=== PATIENT | male | born 1960 | race Two or more races ===

== ENCOUNTER 2024-06-30 15:50 | Inpatient (IN) | payer BC, MEDICAID ==
[~2024-06-30] VITALS: Ht 177.8 cm; Wt 73.0 kg
[2024-06-30] MEDS: IV NS 0.9% 1,000 ML BAG IV ONE (16:30)
[2024-06-30] MEDS ORDERED: INSU100I40 SQ (16:38)
[2024-06-30] MEDS ORDERED: METF-881 PO (16:38)
[2024-06-30] MEDS ORDERED: LISI20TA30 PO (16:38)
[2024-06-30] MEDS ORDERED: MORPHINE SULFATE INJ 4 MG/ML DISP.SYRIN ONE (16:47)
[2024-06-30] MEDS ORDERED: ONDANSETRON HCL/PF 4 MG/2 ML VIAL ONE (16:47)
[2024-06-30] MEDS ORDERED: PIPERACI/TAZO 3.375GM/D5W 50ML PB IV ONE (16:47)
[2024-06-30] MEDS: ONDANSETRON HCL/PF - ER 4 MG/2 ML VIAL IV ONE (16:50)
[2024-06-30 16:53] LABS: BASOPHILS # (AUTO) 0.1 K/uL (0.0-0.2); BASOPHILS % (AUTO) 1.1 % (0.0-2.0); EOSINOPHILS # (AUTO) 0.3 K/uL (0.0-0.7); EOSINOPHILS % (AUTO) 3.7 % (0.0-6.0); HEMATOCRIT 39 % (39-51); LYMPHOCYTES # (AUTO) 0.8 K/uL (0.8-4.8); LYMPHOCYTES % (AUTO) 9.3 % (20.0-44.0); MEAN CORPUSCULAR HEMOGLOBIN 28 PG (26.0-33.0); MEAN CORPUSCULAR HGB CONC 34 g/dl (31.0-36.0); MEAN CORPUSCULAR VOLUME 81 fL (80-96); MONOCYTES # (AUTO) 0.7 K/uL (0.1-1.30); MONOCYTES % (AUTO) 8.3 % (2.0-12.0); NEUTROPHILS # (AUTO) 6.8 K/uL (1.8-8.9); NEUTROPHILS % (AUTO) 77.6 % (43.0-81.0); PLATELET COUNT (AUTO) 258 K/uL (150-450); RED BLOOD CELL COUNT(AUTO) 4.73 MIL/uL (4.5-6.0); RED CELL DISTRIBUTION WIDTH 14.5 % (11.5-15.0); WHITE BLOOD COUNT (AUTO) 8.8 K/uL (4.3-11.0)
[2024-06-30] MEDS: MORPHINE SULFATE INJ 2 MG/ML DISP.SYRIN IV ONE (16:55)
[2024-06-30] MEDS: PIPERACILLIN /TAZOBACTAM 3.375 G in IV D5W 50 ML IV ONE (17:05)
[2024-06-30 17:30] LABS: LACTIC ACID 1.1 mmol/L (0.4-2.0)
[2024-06-30 17:34] LABS: ALANINE AMINOTRANSFERASE 17 U/L (12-78); ALBUMIN 2.6 g/dL (3.4-5.0); ALKALINE PHOSPHATASE 157 U/L (46-116); ASPARTATE AMINOTRANSFERASE 20 U/L (15-37); BILIRUBIN,DIRECT 0.1 mg/dL (0.0-0.2); BILIRUBIN,TOTAL 0.3 mg/dL (0.2-1.0); CALCIUM, SERUM 8.7 mg/dL (8.5-10.1); CARBON DIOXIDE 32 mmol/L (21-32); CHLORIDE 101 mmol/L (98-107); CREATININE 1.1 mg/dL (0.6-1.3); GLUCOSE 222 mg/dL (74-106); NT-PRO BNP 759 pg/mL (0-125); SODIUM SERUM 137 mmol/L (136-145); UREA NITROGEN, BLOOD 22 mg/dL (7-18)
[2024-06-30] MEDS ORDERED: VANCOMYCIN 1 GM /D5W 250 ML PB IV ONE (17:38)
[2024-06-30] MEDS: VANCOMYCIN 1 GM in IV D5W 250 ML IV ONE (17:40)
[2024-06-30 18:00] VITALS: O2SAT 98
[2024-06-30 18:16] LABS: INR 0.99 (0.91-1.10); PARTIAL THROMBOPLASTIN TIME 30.2 SEC (24.3-34.3); PROTHROMBIN TIME 10.5 SECS (9.2-11.1)
[2024-06-30 18:38] LABS: APPEARANCE,URINE CLEAR (CLEAR); BILIRUBIN,URINE NEGATIVE (NEGATIVE); BLOOD, URINE 3+ Ery/uL (NEGATIVE); COLOR,URINE YELLOW (YELLOW); KETONES,URINE TRACE mg/dL (NEGATIVE); LEUKOCYTE ESTERASE ,URINE NEGATIVE (NEGATIVE); NITRITE, URINE NEGATIVE (NEGATIVE); PH,URINE 5.5 (5.0-8.0); PROTEIN,URINE 1+ mg/dl (NEGATIVE); UGLUCOSE 2+ mg/dL (NEGATIVE); UROBILINOGEN,URINE 0.2 EU/dL (0.2)
[2024-06-30 18:52] LABS: ADD URINE CULTURE NO; BACTERIA,URINE Few /HPF (None Seen); SQUAMOUS EPITHELIAL CELL,UR None Seen /HPF (None Seen)
[2024-06-30 18:53] LABS: MUCUS,URINE Few /LPF (None Seen)
[2024-06-30 18:54] LABS: FINE GRANULAR CASTS,URINE Few /LPF (None Seen); URINE AMORPHOUS URATE Few /HPF (None Seen)
[2024-06-30] MEDS ORDERED: DEXTROSE 50%-WATER 50 ML DISP.SYRIN IV PRN (20:30)
[2024-06-30] MEDS ORDERED: ACETAMINOPHEN 325 MG TABLET PO PRN (20:30)
[2024-06-30] MEDS ORDERED: MAGNESIUM HYDROXIDE 30 ML UDC PO PRN (20:30)
[2024-06-30] MEDS ORDERED: MAG HYDROX/AL HYDROX/SIMETH 30 ML UDC PO PRN (20:30)
[2024-06-30] MEDS ORDERED: ONDANSETRON HCL/PF 4 MG/2 ML VIAL IVP PRN (20:30)
[2024-06-30] MEDS ORDERED: Z GUARD REMEDY 4 OZ OINT TP PRN ×2 (20:30→23:00)
[2024-06-30 21:15] VITALS: BP 148/90; TEMP 97.7; O2SAT 93
[2024-06-30] MEDS: ENOXAPARIN SODIUM 40 MG/0.4 ML DISP.SYRIN SQ SCH (22:02)
[2024-06-30] MEDS: BLOOD SUGAR DIAGNOSTIC 1 EACH STRIP IN SCH (22:43)
[2024-06-30] MEDS: INSULIN REGULAR, HUMAN 100 UNIT/ML 3 ML VIAL SQ SCH (23:00)
[2024-07-01] VITALS: BP 148/80; TEMP 98.4; O2SAT 98
[2024-07-01] MEDS ORDERED: PIPERACI/TAZO 3.375GM/D5W 50ML PB IV ONE ×2 (00:05→05:24)
[2024-07-01] MEDS ORDERED: VANCOMYCIN 1 GM /D5W 250 ML PB IV ONE (00:06)
[2024-07-01] MEDS: ZOSYN IVPB 3.375 G in IV D5W 50ml IV SCH ×2 (00:16→11:37)
[2024-07-01] MEDS: VANCOMYCIN 1 GM in IV D5W 250ml IV ONE (03:30)
[2024-07-01 08:03] LABS: ALANINE AMINOTRANSFERASE 15 U/L (12-78); ALBUMIN 1.9 g/dL (3.4-5.0); ALKALINE PHOSPHATASE 111 U/L (46-116); ASPARTATE AMINOTRANSFERASE 19 U/L (15-37); BILIRUBIN,DIRECT 0.1 mg/dL (0.0-0.2); BILIRUBIN,TOTAL 0.4 mg/dL (0.2-1.0); CALCIUM, SERUM 8.3 mg/dL (8.5-10.1); CARBON DIOXIDE 32 mmol/L (21-32); CHLORIDE 102 mmol/L (98-107); CREATININE 0.9 mg/dL (0.6-1.3); GLUCOSE 132 mg/dL (74-106); NT-PRO BNP 1555 pg/mL (0-125); PHOSPHORUS 2.8 mg/dL (2.5-4.9); POTASSIUM 3.6 mmol/L (3.5-5.1); SODIUM SERUM 136 mmol/L (136-145); TOTAL PROTEIN, SERUM 7.1 g/dL (6.4-8.2); UREA NITROGEN, BLOOD 14 mg/dL (7-18)
[2024-07-01] MEDS: INSULIN GLARGINE, 100 UNIT/ML CARTRIDGE SQ SCH (08:10)
[2024-07-01] MEDS: METFORMIN 500 MG TABLET PO SCH (08:10)
[2024-07-01] MEDS: LISINOPRIL (20MG) 20 MG TABLET PO SCH (08:11)
[2024-07-01] MEDS: PANTOPRAZOLE 40 MG TABLET.DR PO SCH (08:11)
[2024-07-01 08:20] LABS: BASOPHILS # (AUTO) 0.1 K/uL (0.0-0.2); BASOPHILS % (AUTO) 0.9 % (0.0-2.0); EOSINOPHILS # (AUTO) 0.2 K/uL (0.0-0.7); EOSINOPHILS % (AUTO) 3.1 % (0.0-6.0); HEMATOCRIT 33 % (39-51); HEMOGLOBIN 10.8 g/dL (13.5-17.5); LYMPHOCYTES % (AUTO) 13.2 % (20.0-44.0); MEAN CORPUSCULAR HEMOGLOBIN 27 PG (26.0-33.0); MEAN CORPUSCULAR HGB CONC 33 g/dl (31.0-36.0); MEAN CORPUSCULAR VOLUME 81 fL (80-96); MONOCYTES # (AUTO) 0.8 K/uL (0.1-1.30); MONOCYTES % (AUTO) 10.3 % (2.0-12.0); NEUTROPHILS # (AUTO) 5.5 K/uL (1.8-8.9); NEUTROPHILS % (AUTO) 72.5 % (43.0-81.0); PLATELET COUNT (AUTO) 205 K/uL (150-450); RED BLOOD CELL COUNT(AUTO) 4.01 MIL/uL (4.5-6.0); RED CELL DISTRIBUTION WIDTH 14.3 % (11.5-15.0); WHITE BLOOD COUNT (AUTO) 7.5 K/uL (4.3-11.0)
[2024-07-01 08:37] VITALS: BP 160/82; TEMP 98.2; O2SAT 96
[2024-07-01] MEDS ORDERED: INSULIN LISPRO 20 UNIT SQ SCH (09:00)
[2024-07-01] MEDS ORDERED: METFORMIN XR 500 MG TAB.SR.24H PO SCH (09:00)
[2024-07-01 12:00] VITALS: BP 140/62; TEMP 98.2; O2SAT 95
[2024-07-01] MEDS: VANCOMYCIN 1 GM in IV D5W 250ml IV SCH (15:01)
[2024-07-01 16:09] VITALS: BP 180/90; TEMP 98; O2SAT 95
[2024-07-01 20:00] VITALS: BP 161/85; TEMP 97.5; O2SAT 98
[2024-07-02] VITALS: BP 138/73; TEMP 98.1; O2SAT 97
[2024-07-02 03:16] LABS: BASOPHILS # (AUTO) 0.1 K/uL (0.0-0.2); EOSINOPHILS # (AUTO) 0.1 K/uL (0.0-0.7); EOSINOPHILS % (AUTO) 1.8 % (0.0-6.0); HEMATOCRIT 34 % (39-51); HEMOGLOBIN 11.3 g/dL (13.5-17.5); LYMPHOCYTES # (AUTO) 1.2 K/uL (0.8-4.8); LYMPHOCYTES % (AUTO) 15.2 % (20.0-44.0); MEAN CORPUSCULAR HEMOGLOBIN 27 PG (26.0-33.0); MEAN CORPUSCULAR HGB CONC 33 g/dl (31.0-36.0); MEAN CORPUSCULAR VOLUME 81 fL (80-96); MONOCYTES # (AUTO) 0.7 K/uL (0.1-1.30); MONOCYTES % (AUTO) 9.7 % (2.0-12.0); NEUTROPHILS # (AUTO) 5.5 K/uL (1.8-8.9); NEUTROPHILS % (AUTO) 72.3 % (43.0-81.0); PLATELET COUNT (AUTO) 206 K/uL (150-450); RED BLOOD CELL COUNT(AUTO) 4.21 MIL/uL (4.5-6.0); WHITE BLOOD COUNT (AUTO) 7.6 K/uL (4.3-11.0)
[2024-07-02 03:27] LABS: CALCIUM, SERUM 8.2 mg/dL (8.5-10.1); MAGNESIUM 1.7 mg/dL (1.8-2.4); PHOSPHORUS 2.9 mg/dL (2.5-4.9); POTASSIUM 3.6 mmol/L (3.5-5.1)
[2024-07-02 08:00] VITALS: BP 170/90; TEMP 97.4; O2SAT 98
[2024-07-02 09:35] VITALS: BP 120/90
[2024-07-02] MEDS: MORPHINE SULFATE INJ 2 MG/ML DISP.SYRIN IV PRN (10:12)
[2024-07-02] MEDS: MAGNESIUM OXIDE 400 MG TABLET PO ONE (11:52)
== END 2024-07-02 12:10 | disposition left against medical advice (07) | DRG 603 ==
LOC: ER 15:50 → TELE 20:35
PROVIDERS: ADMIT Nurse Practitioner Family; ATTEND Internal Medicine
DX: L03.115 Cellulitis of right lower limb (principal); E46 Unspecified protein-calorie malnutrition; Z59.00 Homelessness unspecified; L97.812 Non-pressure chronic ulcer of other part of right lower leg with fat layer exposed; E11.65 Type 2 diabetes mellitus with hyperglycemia; M94.0 Chondrocostal junction syndrome [Tietze]; Z79.84 Long term (current) use of oral hypoglycemic drugs; E88.09 Other disorders of plasma-protein metabolism, not elsewhere classified; E11.40 Type 2 diabetes mellitus with diabetic neuropathy, unspecified; I10 Essential (primary) hypertension; Z79.4 Long term (current) use of insulin; R26.81 Unsteadiness on feet; F19.10 Other psychoactive substance abuse, uncomplicated; R74.8 Abnormal levels of other serum enzymes; Z68.23 Body mass index [BMI] 23.0-23.9, adult; E11.622 Type 2 diabetes mellitus with other skin ulcer; Z79.899 Other long term (current) drug therapy
CPT/HCPCS: 36415; 71045-TC; 80048-TC; 80076-TC; 80202-TC; 81001; 82962-TC; 83605-TC; 83735-TC; 83880; 84100-TC; 84484-TC; 85025-TC; 85730-TC; 87040-TC; 87081-TC; 87086-TC; 93307-TC; A4223; A6253; A6403; G0378; J1650; J1815; J2270; J2405; J2543; J3370; J7060

== ENCOUNTER 2024-07-23 17:15 | Inpatient (IN) | payer BC, MEDICAID ==
[~2024-07-23] VITALS: Ht 180.3 cm; Wt 65.8 kg
[~2024-07-23 17:15] MED LIST: INSU100I40 SQ; LISI20TA30 PO; METF-881 PO
[2024-07-23] MEDS ORDERED: MORPHINE SULFATE INJ 4 MG/ML DISP.SYRIN ONE (19:47)
[2024-07-23] MEDS ORDERED: PIPERACI/TAZO 3.375GM/D5W 50ML PB IV ONE (19:47)
[2024-07-23] MEDS ORDERED: ONDANSETRON HCL/PF 4 MG/2 ML VIAL ONE (19:47)
[2024-07-23 19:53] LABS: BASOPHILS # (AUTO) 0.1 K/uL (0.0-0.2); BASOPHILS % (AUTO) 1.3 % (0.0-2.0); EOSINOPHILS # (AUTO) 0.4 K/uL (0.0-0.7); EOSINOPHILS % (AUTO) 3.6 % (0.0-6.0); HEMATOCRIT 34 % (39-51); LYMPHOCYTES # (AUTO) 1.5 K/uL (0.8-4.8); LYMPHOCYTES % (AUTO) 13.7 % (20.0-44.0); MEAN CORPUSCULAR HEMOGLOBIN 26 PG (26.0-33.0); MEAN CORPUSCULAR HGB CONC 32 g/dl (31.0-36.0); MEAN CORPUSCULAR VOLUME 81 fL (80-96); MONOCYTES % (AUTO) 8.9 % (2.0-12.0); NEUTROPHILS % (AUTO) 72.5 % (43.0-81.0); PLATELET COUNT (AUTO) 190 K/uL (150-450); RED BLOOD CELL COUNT(AUTO) 4.18 MIL/uL (4.5-6.0)
[2024-07-23] MEDS: IV NS 0.9% 1,000 ML BAG IV ONE (19:58)
[2024-07-23] MEDS: MORPHINE SULFATE INJ 2 MG/ML DISP.SYRIN IV ONE (19:58)
[2024-07-23] MEDS: PIPERACILLIN /TAZOBACTAM 3.375 G in IV D5W 50 ML IV ONE (19:58)
[2024-07-23] MEDS: ONDANSETRON HCL/PF 4 MG/2 ML VIAL IVP ONE (19:59)
[2024-07-23 20:01] LABS: CALCIUM, SERUM 8.9 mg/dL (8.5-10.1); CREATININE 2.3 mg/dL (0.6-1.3); POTASSIUM 4.6 mmol/L (3.5-5.1)
[2024-07-23 20:06] LABS: ALBUMIN 2.4 g/dL (3.4-5.0); BILIRUBIN,DIRECT 0.1 mg/dL (0.0-0.2); BILIRUBIN,TOTAL 0.3 mg/dL (0.2-1.0); TOTAL PROTEIN, SERUM 8.3 g/dL (6.4-8.2)
[2024-07-23 20:09] LABS: LACTIC ACID 1.5 mmol/L (0.4-2.0)
[2024-07-23 20:10] LABS: PARTIAL THROMBOPLASTIN TIME 28.3 SEC (24.3-34.3); PROTHROMBIN TIME 10.3 SECS (9.2-11.1)
[2024-07-23] MEDS ORDERED: VANCOMYCIN 1 GM /D5W 250 ML PB IV ONE (20:47)
[2024-07-23] MEDS: VANCOMYCIN 1 GM in IV D5W 250 ML IV ONE (20:51)
[2024-07-23] MEDS ORDERED: MAGNESIUM HYDROXIDE 30 ML UDC PO PRN (22:00)
[2024-07-23] MEDS ORDERED: ONDANSETRON HCL/PF 4 MG/2 ML VIAL IVP PRN (22:00)
[2024-07-23] MEDS ORDERED: MAG HYDROX/AL HYDROX/SIMETH 30 ML UDC PO PRN (22:00)
[2024-07-23] MEDS ORDERED: Z GUARD REMEDY 4 OZ OINT TP PRN (22:00)
[2024-07-23 22:30] VITALS: BP 158/97; TEMP 97.7; O2SAT 100
[2024-07-23] MEDS: IV NS 0.9% 1,000 ML IV SCH (23:04)
[2024-07-24] MEDS ORDERED: VANCOMYCIN 500 MG VIAL ONE (01:19)
[2024-07-24] MEDS: VANCOMYCIN 500 MG in IV D5W 100ml IV ONE (01:29)
[2024-07-24] MEDS ORDERED: DEXTROSE 50%-WATER 50 ML DISP.SYRIN IV PRN (03:00)
[2024-07-24] MEDS ORDERED: PIPERACI/TAZO 3.375GM/D5W 50ML PB IV ONE (04:35)
[2024-07-24] MEDS: PIPERACILLIN /TAZOBACTAM 3.375 G in IV D5W 50 ML IV ONE (04:56)
[2024-07-24 06:14] VITALS: BP 158/97; TEMP 97.7; O2SAT 100
[2024-07-24] MEDS: HYDROCODONE/APAP 5/325MG TABLET PO PRN (06:22)
[2024-07-24] MEDS: INSULIN REGULAR, HUMAN 100 UNIT/ML 3 ML VIAL SQ PRN (06:31)
[2024-07-24] MEDS: BLOOD SUGAR DIAGNOSTIC 1 EACH STRIP IN SCH (06:32)
[2024-07-24 07:31] LABS: CALCIUM, SERUM 7.8 mg/dL (8.5-10.1); CREATININE 1.8 mg/dL (0.6-1.3); MAGNESIUM 1.9 mg/dL (1.8-2.4); POTASSIUM 3.6 mmol/L (3.5-5.1)
[2024-07-24 07:44] LABS: BASOPHILS # (AUTO) 0.1 K/uL (0.0-0.2); BASOPHILS % (AUTO) 0.9 % (0.0-2.0); EOSINOPHILS # (AUTO) 0.2 K/uL (0.0-0.7); EOSINOPHILS % (AUTO) 2.9 % (0.0-6.0); HEMATOCRIT 32 % (39-51); HEMOGLOBIN 10.6 g/dL (13.5-17.5); LYMPHOCYTES # (AUTO) 0.6 K/uL (0.8-4.8); LYMPHOCYTES % (AUTO) 6.8 % (20.0-44.0); MEAN CORPUSCULAR HEMOGLOBIN 26 PG (26.0-33.0); MEAN CORPUSCULAR HGB CONC 33 g/dl (31.0-36.0); MEAN CORPUSCULAR VOLUME 80 fL (80-96); MONOCYTES # (AUTO) 0.7 K/uL (0.1-1.30); MONOCYTES % (AUTO) 8.2 % (2.0-12.0); NEUTROPHILS # (AUTO) 6.8 K/uL (1.8-8.9); NEUTROPHILS % (AUTO) 81.2 % (43.0-81.0); PLATELET COUNT (AUTO) 144 K/uL (150-450); RED BLOOD CELL COUNT(AUTO) 4.01 MIL/uL (4.5-6.0); RED CELL DISTRIBUTION WIDTH 15.1 % (11.5-15.0); WHITE BLOOD COUNT (AUTO) 8.3 K/uL (4.3-11.0)
[2024-07-24 08:00] VITALS: BP 176/85; TEMP 98.4; O2SAT 100
[2024-07-24] MEDS: PANTOPRAZOLE 40 MG VIAL IV SCH (08:23)
[2024-07-24] MEDS: ACETAMINOPHEN 325 MG TABLET PO PRN (09:44)
[2024-07-24] MEDS ORDERED: ZOSYN IVPB 2.25 G in IV D5W 50ml IV SCH (10:00)
[2024-07-24] MEDS: ZOSYN IVPB 2.25 G in IV D5W 50ml IV SCH (11:44)
[2024-07-24] MEDS ORDERED: PIPERACILLIN /TAZOBACTAM 3.375 G in IV D5W 50 ML IV SCH (13:00)
[2024-07-24] MEDS: CEFTRIAXONE 2 G in IV D5W 100 ML IV SCH (13:13)
[2024-07-24] MEDS: VANCOMYCIN 500 MG in IV D5W 100ml IV SCH (14:52)
[2024-07-24 16:00] VITALS: BP 153/74; TEMP 98.2; O2SAT 99
[2024-07-24 17:05] LABS: CREATININE, URINE 30.2 MG/DL (30.0-125.0); URINE TOTAL PROTEIN 45.2 mg/dL (0-11.9)
[2024-07-24 17:06] LABS: APPEARANCE,URINE SLIGHTLY CLOUDY (CLEAR); BILIRUBIN,URINE NEGATIVE (NEGATIVE); BLOOD, URINE 3+ Ery/uL (NEGATIVE); COLOR,URINE YELLOW (YELLOW); KETONES,URINE NEGATIVE (NEGATIVE); LEUKOCYTE ESTERASE ,URINE NEGATIVE (NEGATIVE); NITRITE, URINE NEGATIVE (NEGATIVE); PROTEIN,URINE TRACE mg/dl (NEGATIVE); UGLUCOSE 3+ mg/dL (NEGATIVE); UROBILINOGEN,URINE 0.2 EU/dL (0.2)
[2024-07-24 17:44] LABS: RBC,URINE 81-100 /HPF (0-2)
[2024-07-24 17:46] LABS: ADD URINE CULTURE NO; BACTERIA,URINE Rare /HPF (None Seen); WBC,URINE 0-2 /HPF (0-3)
[2024-07-24 17:47] LABS: SQUAMOUS EPITHELIAL CELL,UR Rare /HPF (None Seen); YEAST,URINE Few /HPF (None Seen)
[2024-07-24 17:49] LABS: MUCUS,URINE Rare /LPF (None Seen)
[2024-07-24 20:00] VITALS: BP_SYST 133; BP_SYST 139; BP_DIAS 77; TEMP 98.2; TEMP 99; O2SAT 97
[2024-07-24 20:31] LABS: EOSINOPHIL,URINE Few
[2024-07-25] MEDS: IV NS 0.9% 1,000 ML IV PRN (01:05)
[2024-07-25 08:00] VITALS: BP 162/94; TEMP 98.2; O2SAT 99
[2024-07-25 08:02] LABS: BASOPHILS # (AUTO) 0.1 K/uL (0.0-0.2); BASOPHILS % (AUTO) 0.9 % (0.0-2.0); EOSINOPHILS # (AUTO) 0.3 K/uL (0.0-0.7); EOSINOPHILS % (AUTO) 3.6 % (0.0-6.0); HEMATOCRIT 30 % (39-51); LYMPHOCYTES # (AUTO) 0.9 K/uL (0.8-4.8); LYMPHOCYTES % (AUTO) 10.1 % (20.0-44.0); MEAN CORPUSCULAR HEMOGLOBIN 27 PG (26.0-33.0); MEAN CORPUSCULAR HGB CONC 34 g/dl (31.0-36.0); MEAN CORPUSCULAR VOLUME 79 fL (80-96); MONOCYTES # (AUTO) 0.7 K/uL (0.1-1.30); MONOCYTES % (AUTO) 7.3 % (2.0-12.0); NEUTROPHILS # (AUTO) 7.2 K/uL (1.8-8.9); NEUTROPHILS % (AUTO) 78.1 % (43.0-81.0); PLATELET COUNT (AUTO) 161 K/uL (150-450); RED BLOOD CELL COUNT(AUTO) 3.77 MIL/uL (4.5-6.0); RED CELL DISTRIBUTION WIDTH 14.6 % (11.5-15.0); WHITE BLOOD COUNT (AUTO) 9.2 K/uL (4.3-11.0)
[2024-07-25 08:12] LABS: ALBUMIN 1.9 g/dL (3.4-5.0); BILIRUBIN,TOTAL 0.2 mg/dL (0.2-1.0); CREATININE 1.5 mg/dL (0.6-1.3); MAGNESIUM 1.7 mg/dL (1.8-2.4); PHOSPHORUS 1.5 mg/dL (2.5-4.9); POTASSIUM 4.2 mmol/L (3.5-5.1); TOTAL PROTEIN, SERUM 7.4 g/dL (6.4-8.2)
[2024-07-25] MEDS: CLONIDINE HCL 0.1 MG TABLET PO PRN (09:15)
[2024-07-25 10:00] VITALS: BP 147/84
[2024-07-25] MEDS: LIDOCAINE 2% 20 ML MDV TP ONE (10:39)
[2024-07-25] MEDS: MAGNESIUM OXIDE 400 MG TABLET PO ONE (14:31)
[2024-07-25 14:50] LABS: HIV-1 p24 ANTIGEN NON REACTIVE (NONREACTIVE); HIV-1/2 ANTIBODY NON REACTIVE (NONREACTIVE)
[2024-07-25 16:13] VITALS: BP 162/85; TEMP 98.2; O2SAT 98
[2024-07-25] MEDS: K PHOS NEUTRAL 250 MG TABLET PO ONE (16:37)
[2024-07-25 17:30] VITALS: BP 138/75
[2024-07-25 20:00] VITALS: BP 125/85; TEMP 97.5; O2SAT 97
[2024-07-26 07:00] VITALS: BP 123/107; TEMP 98.1; O2SAT 99
[2024-07-26] MEDS: PANTOPRAZOLE 40 MG TABLET.DR PO SCH (08:49)
[2024-07-26 09:56] LABS: BASOPHILS # (AUTO) 0.1 K/uL (0.0-0.2); BASOPHILS % (AUTO) 1.8 % (0.0-2.0); EOSINOPHILS # (AUTO) 0.3 K/uL (0.0-0.7); EOSINOPHILS % (AUTO) 4.3 % (0.0-6.0); HEMATOCRIT 32 % (39-51); HEMOGLOBIN 10.7 g/dL (13.5-17.5); LYMPHOCYTES # (AUTO) 0.9 K/uL (0.8-4.8); MEAN CORPUSCULAR HEMOGLOBIN 26 PG (26.0-33.0); MEAN CORPUSCULAR HGB CONC 33 g/dl (31.0-36.0); MEAN CORPUSCULAR VOLUME 79 fL (80-96); MONOCYTES # (AUTO) 0.5 K/uL (0.1-1.30); MONOCYTES % (AUTO) 6.9 % (2.0-12.0); NEUTROPHILS # (AUTO) 5.2 K/uL (1.8-8.9); PLATELET COUNT (AUTO) 174 K/uL (150-450); RED BLOOD CELL COUNT(AUTO) 4.04 MIL/uL (4.5-6.0); RED CELL DISTRIBUTION WIDTH 14.7 % (11.5-15.0)
[2024-07-26 10:37] LABS: MAGNESIUM 1.5 mg/dL (1.8-2.4); PHOSPHORUS 2.5 mg/dL (2.5-4.9)
[2024-07-26 13:09] LABS: *SPE A/G RATIO 0.5 (0.7-1.7); *SPE ALBUMIN 2.2 g/dL (2.9-4.4); *SPE ALPHA-1-GLOBULIN 0.3 g/dL (0.0-0.4); *SPE ALPHA-2-GLOBULIN 0.8 g/dL (0.4-1.0); *SPE BETA GLOBULIN 0.9 g/dL (0.7-1.3); *SPE GLOBULIN, TOTAL 4.6 g/dL (2.2-3.9); *SPE M-SPIKE Not Observed g/dL (Not Observed); *SPE PROTEIN TOTAL 6.8 g/dL (6.0-8.5); *SPEGAMMA GLOBULIN 2.5 g/dL (0.4-1.8)
[2024-07-26 15:25] LABS: CREATININE 1.3 mg/dL (0.6-1.3); POTASSIUM 3.7 mmol/L (3.5-5.1)
[2024-07-27 11:08] LABS: PTH, INTACT 36 pg/mL (15-65)
== END 2024-07-26 11:30 | disposition left against medical advice (07) | DRG 623 ==
LOC: ER 17:15 → TELE 21:16 → MED 07-24 00:09
PROVIDERS: ATTEND Nurse Practitioner Family
PROC: 0JBN0ZZ Excision of Right Lower Leg Subcutaneous Tissue and Fascia, Open Approach (ICD-10-PCS; principal; 2024-07-25)
PROC: 0JBQ0ZZ Excision of Right Foot Subcutaneous Tissue and Fascia, Open Approach (ICD-10-PCS; 2024-07-25)
DX: E11.621 Type 2 diabetes mellitus with foot ulcer (principal); E87.1 Hypo-osmolality and hyponatremia; L03.115 Cellulitis of right lower limb; Z59.00 Homelessness unspecified; L97.919 Non-pressure chronic ulcer of unspecified part of right lower leg with unspecified severity; N17.0 Acute kidney failure with tubular necrosis; E86.0 Dehydration; Z79.84 Long term (current) use of oral hypoglycemic drugs; E11.65 Type 2 diabetes mellitus with hyperglycemia; L97.519 Non-pressure chronic ulcer of other part of right foot with unspecified severity; E11.22 Type 2 diabetes mellitus with diabetic chronic kidney disease; I12.9 Hypertensive chronic kidney disease with stage 1 through stage 4 chronic kidney disease, or unspecified chronic kidney disease; N18.9 Chronic kidney disease, unspecified; M89.8X9 Other specified disorders of bone, unspecified site; M19.90 Unspecified osteoarthritis, unspecified site; Z53.29 Procedure and treatment not carried out because of patient's decision for other reasons; E11.40 Type 2 diabetes mellitus with diabetic neuropathy, unspecified; D64.9 Anemia, unspecified; Z71.6 Tobacco abuse counseling; Z90.5 Acquired absence of kidney; Z91.199 Patient's noncompliance with other medical treatment and regimen due to unspecified reason; Z85.528 Personal history of other malignant neoplasm of kidney; Z79.899 Other long term (current) drug therapy; F17.200 Nicotine dependence, unspecified, uncomplicated; Z91.041 Radiographic dye allergy status; Z88.8 Allergy status to other drugs, medicaments and biological substances; Z79.4 Long term (current) use of insulin; M77.30 Calcaneal spur, unspecified foot
CPT/HCPCS: 36415; 71045-TC; 73630-TC; 73700-TC; 73718-TC; 76770-TC; 80048-TC; 80053-TC; 80061-TC; 80076-TC; 80202-TC; 81001; 82550-TC; 82570-TC; 82962-TC; 83605-TC; 83735-TC; 83970; 84100-TC; 84155; 84165; 84300-TC; 85025-TC; 85652-TC; 85730-TC; 86140-TC; 86803; 87040-TC; 87081-TC; 87086-TC; 87806; 97116-TC; 97530-TC; A4223; A6253; A6403; G0378; J0696; J1815; J2270; J2405; J2470; J2543; J3370; J3490; J7030; J7060

== ENCOUNTER 2024-11-15 00:35 | Emergency (ER) | payer BC ==
[~2024-11-15] VITALS: Ht 175.3 cm; Wt 68.0 kg
[2024-11-15] MEDS ORDERED: ACETAMINOPHEN ES 500 MG TABLET ONE (01:05)
[2024-11-15] MEDS ORDERED: CLINDAMYCIN HCL 150 MG CAPSULE ONE (01:06)
[2024-11-15] MEDS: CLINDAMYCIN HCL 150 MG CAPSULE PO ONE (01:08)
[2024-11-15] MEDS: ACETAMINOPHEN ES 500 MG TABLET PO ONE (01:09)
[2024-11-15] MEDS ORDERED: CLIN300C12 PO (01:40)
[2024-11-15 01:47] VITALS: BP 127/81; TEMP 98.5; O2SAT 99
== END 2024-11-15 01:59 | disposition home or self-care (01) ==
LOC: ER 00:44
DX: L03.115 Cellulitis of right lower limb (principal); E11.9 Type 2 diabetes mellitus without complications; I10 Essential (primary) hypertension; Z59.00 Homelessness unspecified; Z79.4 Long term (current) use of insulin; Z79.84 Long term (current) use of oral hypoglycemic drugs; Z79.899 Other long term (current) drug therapy; Z88.8 Allergy status to other drugs, medicaments and biological substances; Z90.5 Acquired absence of kidney; Z91.041 Radiographic dye allergy status; Z86.79 Personal history of other diseases of the circulatory system